=== PATIENT | male | born 1950 | race Caucasian/White ===

== ENCOUNTER 2018-02-27 06:44 | Emergency (ER) | payer MEDICARE, SELFPAY ==
[2018-02-27 06:44] VITALS: BP 149/100; PULSE 82; RESP 16; TEMP 37.1; O2SAT 96; BMI 36.6
--- NOTE | 2018-02-27 07:12 | CT_ITS ---
STUDY: CT ABDOMEN AND PELVIS WITHOUT CONTRAST REASON FOR EXAM: Male, 67 years old. Periumbilical pain. History of kidney stones. RADIATION DOSAGE (If Supplied By Facility): CTDIvol = ( 25.85 ) mGy, DLP = ( 1356.01 ) mGycm TECHNIQUE: Transaxial images were obtained from the dome of the diaphragm to the symphysis pubis without oral contrast, and without intravenous contrast. Sagittal and coronal images were reconstructed. Individualized dose optimization techniques were used for this CT. COMPARISON: Comparison is made with prior study dated July 04, 2016. FINDINGS: Mild degree of increased markings of the lung bases suggestive of scarring and/or atelectasis. Coronary artery calcification. Normal liver. There are surgical clips in the gallbladder fossa consistent with a prior cholecystectomy. Normal spleen. Normal pancreas. Normal bilateral adrenal glands. There are several tiny nonobstructive right intrarenal calculi. The largest measures 4 mm and lies in the inferior pole. Stable 1 cm cyst in the posterior midportion of the right kidney. Mild degree of perinephric stranding. Mild degree of right hydronephrosis and right hydroureter due to a 4.8 mm calculus in the proximal portion of the right ureter just distal to the right ureteropelvic junction. There is a mild degree of right ovarian ureteric stranding. Normal left kidney. There is a small hiatal hernia. Normal small intestine. Normal colon. The appendix is visualized and appears normal. There is diffuse atherosclerotic calcification of the abdominal aorta and its major visceral branches, without a demonstrated aneurysm. Normal inferior vena cava. Normal retroperitoneum. Normal urinary bladder. There is enlargement of the prostate gland. The prostate measures 5.1 cm x 5.1 cm. There is a small umbilical hernia containing fat. Small bilateral inguinal hernias containing fat. Small bilateral benign-appearing inguinal lymph nodes. There are mild degenerative changes of the visualized lumbar spine. CT/Abdomen/Pelvis without Cont IMPRESSION: 4.8 mm calculus in the proximal portion of the right ureter causing right hydronephrosis with perinephric stranding. Nonobstructive right intrarenal calculi. Electronically Signed: Torsten Decker MD at 8:23 EDT Tel [phone], Service support ,
--- NOTE | 2018-02-27 07:26 | ED.VISSUMM ---
- ER Visit Summary Date of Service: 02/27/18 Chief Complaint: Abdominal pain History of Present Illness: The patient is a 67 M reports midabdominal pain for the past several days. He forced decreased appetite. His last bowel movement was 4 days ago. He normally goes twice a day. states he had a fever and some chills over the weekend. Patient feels like his abdomen is distended and feels the shape of his abdominal hernia around his umbilicus has changed in shape. He denies any prior abdominal surgeries. He also reports a history of kidney stones and states he has been passing some small stones over the last several days. Physical Examination: Vital signs are gross unremarkable. Patient's lying in bed no acute distress. Head neck examination is unremarkable. Heart is regular rate and rhythm. Lung sounds are clear. Abdomen is soft with active bowel sounds throughout. There is no guarding or rebound. He has mild tenderness in the periumbilical area. There is a soft hernia just inferior to the umbilicus. There is a slightly tense hernia just above the umbilicus. Test Results: CBC is significant only for platelet count of 130,000. This is unchanged compared to prior labs. Chemistry studies reveal BUN of 31 and a creatinine of 2.02. This is compared to a creatinine 1.52 in June 2016. Lactate is unremarkable. CT flank reveals a 4.8 mm calculus in the proximal portion of the right ureter causing hydronephrosis and stranding. There is no umbilical hernia containing fat only. Emergency Department Course and Treatment: Patient was given morphine, Zofran, and IV fluids. On repeat evaluation he does feel improved. I spoke with Dr. Mccullough, whom the patient has seen in the past. Patient is to call the office to be seen this week. Treatment Plan: [] Disposition: Discharge Impression: Right ureteral calculus This note was generated with [employer] dictation software. It may contain incorrect words, spelling, and punctuation that were not noted in review of the chart prior to signing ED Disposition - Plan for ED Patient: Chief Complaint: Abd Pain Referrals: Juan Carlos Dee MD [Primary Care Provider] -
[2018-02-27] MEDS: Morphine 4 MG/ML Syringe IV (07:31)
[2018-02-27] MEDS: 0.9% Normal Saline 1,000 ML 150 ML IV (07:31)
[2018-02-27] MEDS: Ondansetron 4 MG/2 ML Vial IV (07:32)
[2018-02-27 07:46] LABS: Absolute Lymphocyte Count 1.15 X10^3/ul (0.83-4.51); Absolute Neutrophil Count 8.1 X10^3/uL (2.0-7.7); Basophil# 0.02 X10^3/uL; Basophil% 0.2 % (0-1); Eosinophil# 0.04 X10^3/uL; Eosinophils% 0.4 % (0-5); Hematocrit 42.8 % (40-54); Hemoglobin 14.9 g/dl (13.0-16.5); Lymphocyte # 1.15 X10^3/ul (4.0); Lymphocyte % 11.2 % (19-41); Mean Corp Hgb Conc 34.8 g/gl (32-36); Mean Corpuscular Hgb 30.9 pg (27.0-32.0); Mean Corpuscular Volume 88.8 fL (80-94); Mean Platelet Vol. 9.9 fl (6.2-12.0); Monocyte% 9.7 % (0-10); Neutrophil # 8.08 X10^3/uL (2.7-7.7); Neutrophil % 78.3 % (47-70); Platelet Count 130 K/mm3 (150-450); RBC Distribution Width CV 13.1 % (11.6-14.6); Red Blood Count 4.82 M/mm3 (4.6-6.2); White Blood Count 10.3 K/mm3 (4.4-11.0)
[2018-02-27 07:47] LABS: POSITIVE COUNT NO; POSITIVE DIFFERENTIAL NO; POSITIVE MORPHOLOGY NO
[2018-02-27 07:59] LABS: Anion Gap 11 (5-15); BUN 31 mg/dL (7-18); BUN/Creat Ratio 15.3 RATIO (10-20); Calcium,Total 8.8 mg/dL (8.5-10.1); Chloride 105 mmol/L (98-107); Creatinine, Serum 2.02 mg/dL (0.70-1.30); EST Glomerular Filtration Rate 35 mL/min (>60); Est Glom Filt Rate - Afr Amer 43 mL/min (>60); Estimated Creatinine Clearance 32.02 ml/min; Glucose 144 mg/dL (74-106); Potassium 3.6 mmol/L (3.5-5.1); Sodium Level 139 mmol/L (136-145)
[2018-02-27 08:10] LABS: Lactic Acid 1.2 mmol/L (0.4-2.0)
--- NOTE | 2018-02-27 08:43 | ED.DEP ---
ED Disposition - Plan for ED Patient: Disposition: Home or Assisted Living Chief Complaint: Abd Pain Instructions: ED Stone Renal W Colic, ED Constipation Prescriptions: Oxycodone HCl/Acetaminophen [Percocet 5/325] 1 tablet PO Q6H PRN PRN 4 Days #20 tablet PRN Reason: Pain Ondansetron [Zofran Odt] 4 mg PO Q8H PRN PRN #10 tab PRN Reason: Nausea Referrals: Edgardo Mccullough MD [STAFF PHYSICIAN] - 2 Days
== END 2018-02-27 09:07 | disposition home or self-care (01) ==
PROVIDERS: Emergency Provider Emergency Medicine; Family Provider Internal Medicine; PCP Internal Medicine
DX: N13.2 Hydronephrosis with renal and ureteral calculous obstruction (principal); K59.00 Constipation, unspecified; K42.9 Umbilical hernia without obstruction or gangrene; I25.10 Atherosclerotic heart disease of native coronary artery without angina pectoris; I25.2 Old myocardial infarction; E11.9 Type 2 diabetes mellitus without complications; I10 Essential (primary) hypertension; E78.00 Pure hypercholesterolemia, unspecified; G47.33 Obstructive sleep apnea (adult) (pediatric); Z87.442 Personal history of urinary calculi; Z79.82 Long term (current) use of aspirin; Z79.02 Long term (current) use of antithrombotics/antiplatelets; Z79.899 Other long term (current) drug therapy
CPT/HCPCS: 74176; 80048; 83605; 85025; 96361; 96374; 96375; 99283; J7030; A4216; J2405

== ENCOUNTER 2018-03-03 12:39 | Day surgery (SDC) | payer MEDICARE, SELFPAY ==
--- NOTE | 2018-03-03 12:59 | RAD_ITS ---
STUDY: X-RAY - ABDOMEN/PELVIS REASON FOR EXAM: Male, 67 years old. Right kidney stones. TECHNIQUE: Two AP supine views of the abdomen and pelvis. COMPARISON: Comparison is made with prior examination dated November 09, 2018. FINDINGS: Normal visualized lung bases. There is an unremarkable bowel gas pattern. The patient is status post cholecystectomy. 2 adjacent calculi are seen overlying the mid lower pole of the right kidney. The stones measure 3.5 mm each. There are calcified phleboliths in the pelvis. There are diffuse degenerative changes of the visualized lumbar spine. RAD/Abdomen Single View IMPRESSION: 2 small calculi seen in the lower pole calyx of the right kidney. Electronically Signed: Torsten Decker MD at 13:58 EDT Tel [phone], Service support ,
[2018-03-03 13:46] VITALS: BP 119/92; PULSE 59; RESP 16; TEMP 36.3; O2SAT 100; BMI 36.1
[2018-03-03] MEDS: Cefazolin 2 GM in 0.9% Normal Saline 100 ML IV (15:19)
--- NOTE | 2018-03-03 15:38 | PCM.DC.URO ---
Discharge Diet: Light diet - advance as tolerated Discharge Activity: Return to Normal Activity Call your doctor if you observe: Fever of 101 or Higher, Uncontrolled pain Instructions: Shock Wave Lithotripsy Allergies/Adverse Reactions: Allergies clams Allergy (Verified 03/02/18 08:09) Rash Medications to take at Discharge Aspirin 325 mg PO DAILY@0800 07/04/16 Cholecalciferol (Vitamin D3) [Vitamin D3] 2,000 unit PO DAILY 07/04/16 Clopidogrel Bisulfate [Plavix] 75 mg PO DAILY 07/04/16 Cyanocobalamin [Vitamin B12] 1,000 mcg PO DAILY@0807/04/16 Furosemide [Lasix] 20 mg PO DAILY 07/04/16 Metoprolol Tartrate [Lopressor (Beta Mart)] 50 mg PO BID 07/04/16 Multivitamin [Daily Multiple Vitamin] 1 each PO DAILY 07/04/16 Psyllium Husk [Fiber] 3 cap PO BID 07/04/16 Atorvastatin Calcium [Lipitor] 40 mg PO QHS 02/27/18 Oxycodone HCl/Acetaminophen [Percocet 5/325] 1 tablet PO Q6H PRN PRN 4 Days #20 tablet 02/27/18 Lisinopril [Zestril] 40 mg PO QHS 03/02/18 Ondansetron HCl [Zofran] 4 mg PO Q8H PRN PRN 03/02/18 Hydrocodone/Acetaminophen [[place] 5-325 Tablet] 1 ea PO Q4H PRN PRN 5 Days #14 tab 03/03/18 The following prescriptions were given: Hydrocodone/Acetaminophen [[place] 5-325 Tablet] 1 ea PO Q4H PRN PRN 5 Days #14 tab PRN Reason: Pain Primary Care Physician: Juan Carlos Dee MD [Primary Care Provider] - Please Follow Up With: Edgardo Mccullough MD - call if need to change appt. When: April 13 at 9:30 am with an xray
--- NOTE | 2018-03-03 15:41 | DCINST_ITS ---
Discharge Diet: Light diet - advance as tolerated Discharge Activity: Return to Normal Activity Call your doctor if you observe: Fever of 101 or Higher, Uncontrolled pain Instructions: Shock Wave Lithotripsy Allergies/Adverse Reactions: Allergies clams Allergy (Verified 03/02/18 08:09) Rash Medications to take at Discharge Aspirin 325 mg PO DAILY@0800 07/04/16 Cholecalciferol (Vitamin D3) [Vitamin D3] 2,000 unit PO DAILY 07/04/16 Clopidogrel Bisulfate [Plavix] 75 mg PO DAILY 07/04/16 Cyanocobalamin [Vitamin B12] 1,000 mcg PO DAILY@0807/04/16 Furosemide [Lasix] 20 mg PO DAILY 07/04/16 Metoprolol Tartrate [Lopressor (Beta Mart)] 50 mg PO BID 07/04/16 Multivitamin [Daily Multiple Vitamin] 1 each PO DAILY 07/04/16 Psyllium Husk [Fiber] 3 cap PO BID 07/04/16 Atorvastatin Calcium [Lipitor] 40 mg PO QHS 02/27/18 Oxycodone HCl/Acetaminophen [Percocet 5/325] 1 tablet PO Q6H PRN PRN 4 Days #20 tablet 02/27/18 Lisinopril [Zestril] 40 mg PO QHS 03/02/18 Ondansetron HCl [Zofran] 4 mg PO Q8H PRN PRN 03/02/18 Hydrocodone/Acetaminophen [[place] 5-325 Tablet] 1 ea PO Q4H PRN PRN 5 Days #14 tab 03/03/18 The following prescriptions were given: Hydrocodone/Acetaminophen [[place] 5-325 Tablet] 1 ea PO Q4H PRN PRN 5 Days #14 tab PRN Reason: Pain Primary Care Physician: Juan Carlos Dee MD [Primary Care Provider] - Please Follow Up With: Edgardo Mccullough MD - call if need to change appt. When: April 13 at 9:30 am with an xray
--- NOTE | 2018-03-03 16:00 | PCM.OPRPT ---
Report of Operation Date of Procedure: 03/03/18 Pre-Operative Diagnosis: Right kidney stones and right flank pain Post-Operative Diagnosis: Same Surgery/Procedure Performed:: Right extracorporeal shockwave lithotripsy Description of Surgical Findings:: 67-year-old male presented to the emergency room with severe pain in the right side of his proximal stone causing obstruction and hydronephrosis he had severe pain the pain and then went away with some in the office with an x-ray and reviewed the KUB and CAT scan and talked about the options of treatment including laser lithotripsy and shockwave lithotripsy after reviewing with this the patient he wanted to proceed with shockwave lithotripsy he understands he probably will not need a stent given the minimal stone burden. We also discussed the possibility stone with failed to break and he may need a second procedure. 67-year-old male taken back to the operating room after smooth induction of general anesthesia under fluoroscopy was able to identify stones in the right kidney in the lower pole area 2 stone fragments are seen a total of 2500 shockwaves were delivered to the stones stones actually broke up fairly rapidly and within the first thousand shockwaves had broken up really well and then we increased the speed lower the rate and intensity and finished of the treatment 2500 shockwaves at the end there was no other visible stones left a treat appear to be a successful fragmentation no stones were seen along the course of the entire ureter on the right side. Patient's anesthetic was reversed we will see him back in about 6 weeks with a KUB. Type of Anesthesia:: General - Admit VTE Documentation VTE Present on Admission: No VTE Mechan Device Prophylaxis: SCD's VTE Pharm Prophylaxis ordered?: No Reason prophylaxis not ordered:: Treatment Not Indicated
[2018-03-03 16:07] VITALS: BP 119/92; BP 121/76; PULSE 83; RESP 16; TEMP 36.3; O2SAT 97
[2018-03-03 16:15] VITALS: BP 119/92; BP 135/83; PULSE 64; RESP 16; O2SAT 97
[2018-03-03 16:30] VITALS: BP 119/92; BP 145/79; PULSE 64; RESP 16; TEMP 36.1; O2SAT 95
[2018-03-03 17:03] VITALS: BP 119/92
== END 2018-03-03 17:04 | disposition home or self-care (01) ==
LOC: SDC 12:40 → AC 12:41
PROVIDERS: Family Provider Internal Medicine; PCP Internal Medicine; Visit Provider Urology
PROC: 0TJ98ZZ Inspection of Ureter, Via Natural or Artificial Opening Endoscopic (ICD-10-PCS; CPT 52352; principal; 2018-03-03 14:30)
DX: N13.2 Hydronephrosis with renal and ureteral calculous obstruction (principal); E11.9 Type 2 diabetes mellitus without complications; E78.00 Pure hypercholesterolemia, unspecified; Z79.02 Long term (current) use of antithrombotics/antiplatelets; Z79.82 Long term (current) use of aspirin; Z79.899 Other long term (current) drug therapy; I10 Essential (primary) hypertension; I25.2 Old myocardial infarction; I25.10 Atherosclerotic heart disease of native coronary artery without angina pectoris; Z95.5 Presence of coronary angioplasty implant and graft; G47.30 Sleep apnea, unspecified; M19.90 Unspecified osteoarthritis, unspecified site
CPT/HCPCS: 50590; 74018; J7120

== ENCOUNTER → 2018-04-18 12:50 | Outpatient (CLI) | payer MEDICARE, SELFPAY ==
--- NOTE | 2018-04-18 12:53 | RAD_ITS ---
STUDY: X-RAY - ABDOMEN/PELVIS REASON FOR EXAM: Male, 67 years old. Recurrent right lower quadrant pain TECHNIQUE: Two AP supine views of the abdomen and pelvis. COMPARISON: February 27, 2018 abdomen series FINDINGS: Lung bases are out of the [id number]. There is a radiopaque density overlying the right psoas muscle measuring 4.4 mm. This may represent a persistent stone in the right ureter. There are surgical clips in the right upper quadrant status post cholecystectomy. There is an unremarkable bowel gas pattern. There is no demonstrated free abdominal air. The visualized liver, spleen and kidneys are grossly normal in size and morphology. There are calcified phleboliths in the pelvis. Normal visualized osseous structures. RAD/Abdomen Single View IMPRESSION: 4.4 mm density overlying the right psoas muscle which may represent a persistent stone in the right ureter. There is a stone in the right ureter February 27, 2018 CT scan abdomen and pelvis. Recommend follow-up CT scan of the abdomen and pelvis without contrast when appropriate. Electronically Signed: Jesusita Desai MD at 17:09 EDT Tel , Service support ,
== END ==
PROVIDERS: Family Provider Internal Medicine; PCP Internal Medicine; Visit Provider Urology
DX: N20.0 Calculus of kidney (principal); R10.9 Unspecified abdominal pain
CPT/HCPCS: 74018

== ENCOUNTER → 2018-05-08 10:23 | Outpatient (CLI) | payer MEDICARE, SELFPAY ==
--- NOTE | 2018-05-08 10:26 | US_ITS ---
STUDY: RENAL ULTRASOUND - COMPLETE REASON FOR EXAM: Male, 67 years old. Follow-up CT. Lithotripsy February 2018. History of kidney stones. TECHNIQUE: Ultrasound evaluation of the kidneys was performed with real-time and static pinzon-scale imaging. COMPARISON: CT abdomen and pelvis 02/27/2018. FINDINGS: RIGHT KIDNEY: 12.7 x 5.4 x 6.0 cm. Cortical thickness 1.8 cm. Normal cortical echotexture. Right renal mid polar cyst measures 11 mm, simple cystic features. Not affecting calyceal calculi are present mid polar calyces measuring 4 mm and 3 mm. There is no hydronephrosis or mass. LEFT KIDNEY: 13.1 x 5.3 x 5.5 cm. Cortical thickness 1.8 cm. Normal cortical echotexture. There is no mass, cyst, calculus or hydronephrosis. BLADDER: Distended volume 249 mL. Empty volume 45 mL. Moderate post void residual. The bladder appears normal in caliber, contour and wall thickness. Bilateral ureteral jets are visible. The spleen is enlarged with a greatest craniocaudal dimension of approximately 13.8 cm. On recent prior CT scan the grayscale, dimension of the spleen was 15.25 cm. US/Kidney and Bladder IMPRESSION: There is no hydronephrosis. There are small retained nonobstructing calyceal calculi of the right kidney. Splenomegaly. Moderate postvoid residual of the urinary bladder. Electronically Signed: Zack Candelario, at 15:47 EDT Tel , Service support ,
== END ==
PROVIDERS: Family Provider Internal Medicine; PCP Internal Medicine; Visit Provider Urology
DX: Z87.442 Personal history of urinary calculi (principal)
CPT/HCPCS: 76770

== ENCOUNTER → 2019-04-09 | Outpatient (CLI) | payer MEDICARE, SELFPAY ==
--- NOTE | 2019-04-09 07:59 | RAD_ITS ---
STUDY: X-RAY - ABDOMEN/PELVIS REASON FOR EXAM: Male, 68 years old. Kidney stones TECHNIQUE: Single AP view of the abdomen / pelvis. COMPARISON: 04/18/2018. FINDINGS: Normal visualized lung bases. There is an unremarkable bowel gas pattern. There is no demonstrated free abdominal air. No definite renal or ureteral stones although small stones could be hidden by overlying bowel contents. The visualized liver, spleen and kidneys are grossly normal in size and morphology. There are calcified phleboliths in the pelvis. Normal visualized osseous structures. RAD/Abdomen Single View IMPRESSION: Normal x-ray examination of the abdomen and pelvis. No definite renal or ureteral stones. Electronically Signed: Zackery Rose MD at 17:42 EDT , Service support ,
[2019-04-09 10:32] LABS: PSA,Total- Diagnostic 4.07 ng/mL (0.0-4.0)
== END | disposition home or self-care (01) ==
PROVIDERS: Family Provider Internal Medicine; PCP Internal Medicine; Referring Provider Urology; Visit Provider Urology
DX: N20.0 Calculus of kidney (principal); N39.0 Urinary tract infection, site not specified; R97.20 Elevated prostate specific antigen [PSA]
CPT/HCPCS: 36415; 74018; 84153; 87086; 87088

== ENCOUNTER → 2019-11-05 13:49 | Outpatient (CLI) | payer MEDICARE, SELFPAY ==
[2019-10-23 13:33] VITALS: BMI 37.3
--- NOTE | 2019-11-05 13:54 | ECHOCS_ITS ---
Reason For Study: CAD/ASHD, HTN Procedure This was a 2D Doppler, Color Flow transthoracic echocardiogram. The study was technically difficult. Due to body habitus. Contrast injection was performed. Exam performed in department. Left Ventricle Normal size and thickness. The estimated ejection fraction is 55-60 %. Stage 1 diastolic dysfunction. Anterior [place] : Mildly hypokinetic. Mid-anteroseptal : Mildly hypokinetic. Right Ventricle Normal size and thickness. Normal systolic function. Atria Normal left atrium. Normal right atrium. Normal atrial septum. Mitral Valve The mitral valve is structurally normal. No prolapse or stenosis seen. Tricuspid Valve Normal tricuspid valve. Unable to estimate RV systolic pressure due to insufficient tricuspid regurgitant envelope. Aortic Valve Trisinus/trileaflet aortic valve. Mild diffuse aortic valve thickening. Trivial aortic valve insufficiency. Pulmonic Valve Normal pulmonic valve. Great Vessels Mildly dilated aortic root. Normal arch. Normal inferior vena cava. Inferior vena cava collapse with sniff. Pericardium/Pleural No pericardial effusion. Medication 22 gauge I.V. with prn adaptor inserted into right arm. Diluted definity 3.0ml given slow IV push to enhance endocardial definition. MMode/2D Measurements & Calculations LVIDd: 4.2 cm FS: 26.7 % Ao root diam: 4.0 cm LVIDs: 3.1 cm RVDd: 3.2 cm LAV(MOD-bp): 56.2 ml LA A4 area: 17.2 cm2 LA dimension(2D): 4.0 cm LAV(MOD-bp) Indexed: 26.4 ml/m2 LAV(MOD-sp2): 49.6 ml LAV(MOD-sp4): 51.9 ml Time Measurements MV dec time: 0.23 sec Doppler Measurements & Calculations MV E max pablo: 71.5 cm/sec Lat Peak E' Pablo: 6.6 cm/sec Med Peak E' Pablo: 6.4 cm/sec MV A max pablo: 89.0 cm/sec E/E' lat: 10.8 E/E' med: 11.2 MV E/A: 0.80 Ao V2 max: 155.2 cm/sec LV V1 max: 95.6 cm/sec PA V2 max: 83.6 cm/sec Ao max P.6 mmHg LV V1 max P.7 mmHg Interpretation Summary The estimated ejection fraction is 55-60 %. Stage 1 diastolic dysfunction. Anterior [place] : Mildly hypokinetic Mid-anteroseptal : Mildly hypokinetic Unable to estimate RV systolic pressure due to insufficient tricuspid regurgitant envelope. Trivial aortic valve insufficiency. Mildly dilated aortic root of 4.0 cm. The study was technically difficult. Contrast injection was performed. There is no comparison study available. Ordering Physician: Theodore Mcmahon Referring Physician: Juan Carlos Dee Performed By: Laurence Jaimes RDCS, RVT
== END ==
PROVIDERS: Family Provider Internal Medicine; PCP Internal Medicine; Referring Provider Internal Medicine Cardiovascular Disease; Visit Provider Internal Medicine Cardiovascular Disease
DX: I25.10 Atherosclerotic heart disease of native coronary artery without angina pectoris (principal); I10 Essential (primary) hypertension; E78.5 Hyperlipidemia, unspecified; Z95.5 Presence of coronary angioplasty implant and graft
CPT/HCPCS: 93306; J7040; Q9957; A4216; C8929

== ENCOUNTER → 2019-11-06 10:28 | Outpatient (CLI) | payer MEDICARE, SELFPAY ==
[2019-10-23 13:33] VITALS: BMI 37.3
--- NOTE | 2019-11-06 10:30 | STEWCON_ITS ---
Reason For Study: CAD/ASHD Stress Results Protocol: Dobutamine Stress Echo With Definity Maximum Predicted HR: 151 bpm Target HR: 128 bpm % Maximum Predicted HR: 84 % DurationHeart Rate Stage (mm:ss) (bpm) BP Dose Comment baseline 63 145/98 9 ml total definity given stage 1 4:55 78 165/27588.00 stage 2 3:00 100 152/8220.00 stage 3 3:00 123 158/8430.00 stage 4 2:49 127 / 40.00 recovery 96 132/86 Stress Duration: 13:44 mm:ss Maximum Stress HR: 127 bpm Baseline Echocardiogram Findings The estimated ejection fraction is 65 %. Stress Echo Wall motion Data Resting WM Intermediate WM Stress WM Resting Wall Motion Wall Motion Stress No regional wall motion No regional wall motion abnormalities noted. abnormalities noted. EKG Data The baseline ECG displays normal sinus rhythm. The patient was titrated from 10 mcg to a maximum of 40 mcg of dobutamine during the stress. The maximum heart rate attained was 133 beats per minute. This was 88% of maximum predicted heart rate. During dobutamine infusion, there were no ST or T wave changes noted to suggest ischemia. No clinical angina was noted. Interpretation Summary The estimated ejection fraction is 65 %. Abnorml adequate, dobutamine echocardiogram. Negative for ischemia by EKG and but positive for ischemia by echocardiographic criteria. No anginal symptoms noted. Patient appeared to develop mild anteroseptal hypokinesis at peak infusion seen in 2 views. Rare PVCs noted during infusion which is a nonspecific finding, but cannot exclude ischemia as well.. Appropriate blood pressure response to dobutamine. Test terminated due to the attainment target heart rate. Final LVEF is 65%. Poor echo windows requiring Definity agent make interpretation somewhat problematic.Patient tolerated the procedure well. No complications. The study was technically difficult. Contrast injection was performed. Ordering Physician: Theodore Mcmahon Referring Physician: Theodore Mcmahon Performed By: Ronnie Layne, [facility]
== END ==
PROVIDERS: Family Provider Internal Medicine; PCP Internal Medicine; Referring Provider Internal Medicine Cardiovascular Disease; Visit Provider Internal Medicine Cardiovascular Disease
DX: I25.10 Atherosclerotic heart disease of native coronary artery without angina pectoris (principal); I10 Essential (primary) hypertension; E78.5 Hyperlipidemia, unspecified; Z95.5 Presence of coronary angioplasty implant and graft
CPT/HCPCS: 93017; 93350; Q9957; A4216; C8928

== ENCOUNTER 2019-11-16 08:38 | Day surgery (SDC) | payer MEDICARE, SELFPAY ==
--- NOTE | 2019-10-23 02:04 | HP_ITS ---
HPI HPI History of Present Illness Surgical H&P: Yes Details: Mr. Fisher is a very pleasant 69-year-old gentleman with a history of hypertension, lifelong non-smoker, hyperlipidemia, obstructive sleep apnea on CPAP, coronary artery disease status post emergent heparin and Integrilin assisted angioplasty and stenting on to his LAD 07/20/2004 at [facility] in [facility], at which time he received a 2.75 X12 Taxus express 2 stent emergently. At that time he was found to have left-sided dominant, nonobstructive coronary disease and an EF of 47%. And repeat heart catheterization around 2006. Patient is a former Dr. Merida patient, and was referred to our office for ongoing cardiac care. His most recent stress test took place at the [facility] on 07/08/2016 which was negative for inducible ischemia by EKG criteria, no imaging was performed. From a cardiac standpoint the patient denies any chest pain, angina, but does complain of worsening shortness of breath and dyspnea on exertion over the last 8 to 12 months. This is most notable when he is walking up and down stairs repeatedly. He has had no presyncope or syncopal episodes. In our office today's blood pressure is 150/80, pulse is 64 and regular. Physical exam demonstrates no carotid bruits, 2+ upstroke bilaterally, clear lungs bilaterally, regular rate and rhythm, normal S2, a faint 2/3 holosystolic murmur best heard at the lower left sternal border, no S3 or S4. EKG dated 08/16/2018 shows normal sinus rhythm, good R wave progression across the precordium, nonspecific ST and T wave flattening. Lipids dated 10/09/2019 show an HDL of 38 and LDL of 36. Intake Vital Signs 10/23/19 Height 5 ft 6 in 10/23/19 Weight: 231 lb 10/23/19 Body Mass Index (BMI) 37.3 10/23/19 Blood Pressure 150/80 H 10/23/19 Blood Pressure Location Lt brachial 10/23/19 Blood Pressure Position Sitting 10/23/19 Respiratory Rate 20 H 10/23/19 Pulse Rate 64 10/23/19 Pulse Source Auscultation Intake Visit Reasons: CAD, HTN (PREV RIKKI PT) Lode [employer]er Required: No Accompanied by: Is patient in pain?: No Allergies clams Allergy (Verified 10/23/19 13:42) Rash Medications Aspirin 325 mg PO DAILY@0800 07/04/16 [History Confirmed 10/23/19] Cyanocobalamin [Vitamin B12] 1,000 mcg PO DAILY@0800 07/04/16 [History Confirmed 10/23/19] Furosemide [Lasix] 20 mg PO DAILY 07/04/16 [History Confirmed 10/23/19] Metoprolol Tartrate [Lopressor (Beta Mart)] 50 mg PO BID 07/04/16 [History Confirmed 10/23/19] Multivitamin [Daily Multiple Vitamin] 1 ea PO DAILY 07/04/16 [History Confirmed 10/23/19] Psyllium Husk [Fiber] 3 cap PO BID 07/04/16 [History Confirmed 10/23/19] Atorvastatin Calcium [Lipitor] 40 mg PO QHS 02/27/18 [History Confirmed 10/23/19] Lisinopril [Zestril] 40 mg PO QHS 03/02/18 [History Confirmed 10/23/19] cetirizine 10 mg tablet 10 mg PO DAILY tab 10/22/19 [History Confirmed 10/23/19] cholecalciferol (vitamin D3) 2,000 unit tablet 2,000 unit PO DAILY 10/22/19 [History Confirmed 10/23/19] [facility] Medical History Essential hypertension (Chronic) Hyperlipidemia (Chronic) BEAU on CPAP (Chronic) Atherosclerosis of coronary artery of [place] heart without angina pectoris (Chronic) Colon polyps (Chronic) Diverticulosis (Chronic) Thrombocytopenia (Chronic) Type 2 diabetes mellitus without complication (Chronic) History of MO (myocardial infarction) (Resolved) Surgical History History of left heart catheterization (Chronic ~2006) History of coronary artery stent placement (Chronic ~07/20/04) History of cholecystectomy (Resolved) History of lithotripsy (Resolved) Family History Mother Colon cancer Social History (Updated 10/23/19 @ 14:05 by Theodore Mcmahon MD) Smoking Status: Never smoker alcohol intake: never substance use type: does not use ROS Const Const: Positive for other (Former pt of Dr. Dave Paige. Feels well, establishing care.); negative for fatigue, weakness, body ache, fever(s), headache(s), chills, frequent falls, night sweats, daytime sleepiness, difficulty sleeping, excessive sweating, weight gain, weight loss, increased appetite, poor appetite or anorexia Eyes Eyes: Negative for blind spots, loss of peripheral vision, transient loss of vision, blurry vision, change in vision, double vision, floaters, tunnel vision or other ENT ENT: Negative for headache(s), dizziness, hearing loss, tinnitus, Nosebleed/epistaxis, balance problems, post nasal drip, lip swelling, tongue swelling, bleeding gums, hoarseness, neck pain, dry mouth or other Cardio Chest Pain: No Palpitations: No Edema: None Muscle aches with walking: None Resp Respiratory: Negative for SOB with activity, SOB at rest, SOB orthopnea\SOB lying down, Cough, Coughing up blood/hemoptysis, chest congestion, pain on inspiration, snoring, stridor, wheezing, crackles, paroxysmal nocturnal dyspnea or other GI GI: Negative nausea, vomiting, heartburn, constipation, belching, bloating, cramping, vomiting blood/hematemesis, bright, red blood in stools, black,tarry stools, loose stools, Difficulty Swallowing or other : Negative for hematuria, frequent nighttime urination/ nocturia, erectile dysfunction or abnormal vaginal bleeding Musc Musc: Negative for muscle aches/ myalgia, muscle weakness, joint pain or balance problems Skin Skin: Negative redness, non-healing lesions, rash, unusual bruising, skin ulcer, wounds, jaundice or other Neuro Neuro: Negative for dizziness, lightheadedness, near syncope, syncope, orthostatic symptoms, frequent falls, headache(s), weakness, confusion, memory loss, restless legs, blurry vision, double vision, vertigo, seizures, lack of coordination or other Rob Hematologic/Lymphatic: Negative for easy bleeding, easy bruising, enlarged lymph nodes or other Endo Endo: Negative for fatigue, cold intolerance, heat intolerance, excessive sweating, flushing, increased thirst/drinking, increased hunger, hair loss, hair growth or other Psych Psych: Negative for anxiety, depression, thoughts of harming anyone, thoughts of harming yourself, visual hallucinations, panic attacks or audible hallucinations Allergy Allergy/Immunology: Negative for throat swelling, Negative for tongue swelling, Negative for hives, Negative for rash, Negative for lip swelling Cardiology Exam Const Appearance: cooperative, healthy appearing and no acute distress Nutritional Appearance: well nourished Orientation: alert, oriented x3 and oriented to person Head Head: normal to inspection, normocephalic and atraumatic Nose: external nose normal Face and Sinus: face symmetric Mouth: oral mucosae normal Eyes General: appearance normal, both eyes and all related structures Eyelids: eyelids normal Conjunctivae: conjunctivae normal Pupils: PERRL and normal by confrontation EOM: EOM intact bilaterally Neck Neck: normal visual inspection and full ROM Carotids: normal carotid upstroke Chest Chest inspection: normal inspection of the chest Auscultation: Bilateral: Clear to Auscultation Cardio Palpation: normal PMI Rate: regular rate Rhythm: regular rhythm Heart sounds: S1 normal and S2 normal GI GI: normal to inspection, no hepatosplenomegaly and bowel sounds present Neuro General: alert, awake, oriented x3, CN's II-XI intact bilaterally and moves all extremities Skin Skin: no rashes or lesions noted Extremities Pulses: Normal: Right Femoral Pulse, Left Femoral Pulse, Right Dorsalis Pedis Pulse, Left Dorsalis Pedis Pulse, Right Posterior Tibial Pulse, Left Posterior Tibial Pulse, Right Radial Pulse, Left Radial Pulse Lower Extremity Edema: None: Bilateral Psych Psychological: normal affect Assessment & Plan 1. Atherosclerosis of coronary artery of [place] heart without angina pectoris I25.10 2.75 x 12 mm Taxus Express II to pLAD 07/20/04 Plan 1. Coronary artery disease: No exertional anginal symptoms at this time however the patient has had progressively worsening dyspnea on exertion and shortness of breath over the last 8 to 12 months which may be an anginal equivalent in this borderline diabetic gentleman. Patient has known history of coronary disease, and previous intervention of his LAD. I recommend the patient undergo a repeat 2D echo with Doppler to document his LV function, and more importantly his pulmonary pressures given his obstructive sleep apnea. In addition I recommend that he undergo a dobutamine echocardiogram to assess for ischemia particularly of the anterior wall. If this is grossly abnormal, the patient may require diagnostic coronary angiogram. In the meantime we will continue baby aspirin, Lasix, lisinopril and metoprolol. Orders Orders: Echo Complete Today Stress Test Echo W/Contrast Today 2. Hyperlipidemia E78.5 Plan 2. Hyperlipidemia: His LDL and HDL cholesterol are at goal. Continue Lipitor. 3. Return office in 6 months. This note was generated using a voice recognition system and there may be incorrect words, spelling or punctuation that were not noted when reviewing the office note prior to saving. Orders Orders: Echo Complete Today Stress Test Echo W/Contrast Today 3. BEAU on CPAP G47.33; Z99.89 Plan Detail Other Orders Orders: Echo Complete Today I10, Z95.5 Stress Test Echo W/Contrast Today I10, Z95.5 Follow Up +6M (Lisandro) Coding Level of Care Code Off vis,new,level 4 Diagnoses Atherosclerosis of coronary artery of [place] heart without angina pectoris I25.10 Hyperlipidemia E78.5 BEAU on CPAP G47.33; Z99.89 Coding Level of Care Code Off vis,new,level 4 Diagnoses Atherosclerosis of coronary artery of [place] heart without angina pectoris I25.10 Hyperlipidemia E78.5 BEAU on CPAP G47.33; Z99.89 Supplemental Info Supplemental Information Diagnostics Electrocardiogram 07/04/16 10/23/19 [id number] <Electronically signed by Theodore Mcmahon MD> Date _ Theodore Mcmahon MD
[2019-10-23 13:33] VITALS: BMI 37.3
--- NOTE | 2019-11-07 15:20 | RAD_ITS ---
STUDY: X-RAY CHEST REASON FOR EXAM: Male, 69 years old. Preop for heart catheterization TECHNIQUE: PA and lateral views of the chest. COMPARISON: None. FINDINGS: Pleural parenchymal fibrotic changes in the right more than left lung base. No airspace elevation. There is no demonstrated pleural abnormality. Normal size heart. Normal mediastinum and tyron. Normal visualized pulmonary arteries. There is atherosclerotic calcification of the aortic arch with tortuosity. Degenerative changes of the thoracic spine with exaggerated thoracic kyphosis, mid thoracic spine chronic compression deformities and diffuse osteopenia. Normal visualized ribs, clavicles, and shoulders. There is no demonstrated abnormality of the visualized soft tissue structures of the upper abdomen. RAD/Chest PA and Lateral IMPRESSION: No acute cardiopulmonary process. Chronic changes, as above. Electronically Signed: Hu Mckeon MD (Brooks) at 20:29 EST , Service support ,
[2019-11-07 16:04] LABS: Hematocrit 44.7 % (40-54); Hemoglobin 15.1 g/dL (13.0-16.5); Mean Corp Hgb Conc 33.8 g/dL (32-36); Mean Corpuscular Hgb 30.4 pg (27.0-32.0); Mean Corpuscular Volume 89.9 fL (80-94); Mean Platelet Vol. 9.5 fl (6.2-12.0); Platelet Count 142 K/mm3 (150-450); RBC Distribution Width CV 13.1 % (11.6-14.6); RBC Distribution Width SD 42.8 fl (35.1-43.9); Red Blood Count 4.97 M/mm3 (4.6-6.2); White Blood Count 5.1 K/mm3 (4.4-11.0)
[2019-11-07 16:13] LABS: Prothrombin Time (Protime)PT. 13.1 SECONDS (11.7-14.9)
[2019-11-07 16:14] LABS: Partial Thromboplast Time 31.5 Seconds (24.1-36.2)
[2019-11-07 17:52] LABS: Anion Gap 6 (5-15); BUN 21 mg/dL (7-18); BUN/Creat Ratio 17.6 RATIO (10-20); Calcium,Total 8.8 mg/dL (8.5-10.1); Chloride 107 mmol/L (98-107); Creatinine, Serum 1.19 mg/dL (0.70-1.30); EST Glomerular Filtration Rate 64 mL/min (>60); Est Glom Filt Rate - Afr Amer 78 mL/min (>60); Glucose 141 mg/dL (74-106); Potassium 3.6 mmol/L (3.5-5.1); Sodium Level 142 mmol/L (136-145)
[2019-11-15 08:39] VITALS: BMI 37.3
--- NOTE | 2019-11-16 11:07 | CL.D_ITS ---
Patient Name: EVETTE DAVILA Study Date: 11/16/2019 Performing: Theodore Mcmahon MD Ht: 66.14 inches 168 cm : 1950 Wt: 231.49 lbs 105 kg Age: 69 Gender: male BSA: 2.13 PROCEDURE(S) PERFORMED [id number]/LV CLINICAL PROFILE AND INDICATIONS Indications: Stable Known CAD, Stable Known CAD, LV Dysfunction Heart Failure: NYHA Class: 1 Stress/Imaging Date: 11/06/2019Stress Echocardiogram: Positive Low Risk Angina Classification Anginal Classification w/in 2 Weeks: No symptoms CAD Presentations: No Sxs, no angina. Comorbidities/Risk Factors: Hypertension Dyslipidemia Prior HI Prior CHF Prior PCI CONCLUSIONS Segmented LV systolic dysfunction- Moderate Non obstructive coronary arteries RECOMMENDATIONS Management as per referring Bracer Manual sheath removal. Continue asa/plavix to protect against HI for large dominant LCX and small dimunitive LAD/RCA,. DESCRIPTION OF PROCEDURE The patient arrived to the procedure lab. The risks and benefits of the procedure as well as a full d escription of our services here and current unavailability of surgical backup were fully explained to the patient and/or their significant other prior to the catheterization. The Timeout was completed, verifying the correct patient and procedure. The patient's procedural site was prepped and draped in the usual fashion. Local anesthetic was given subcutaneously to right groin region with Lidocaine 2%. Using a modified Seldinger technique, arterial access was obtained via the right femoral artery, a 4 Fr sheath was inserted Left Coronary Artery selective angiography was performed in multiple views us ing a 4 Fr. JL5 catheter. Right Coronary Artery selective angiography was then performed in multiple views using a 4 Fr. 3DRC catheter. Left Ventriculography was performed in NEVES projection using a 4 Fr . Pigtail catheter. LV to AO pullback pressures were then recorded.The arterial sheath was pulled and manual compression applied until hemostasis is achieved.. The arterial sheath was pulled a nd manual compression applied until hemostasis is achieved. CORONARY ANGIOGRAPHY DOMINANCE: Left Dominant LEFT HEART ASSESSMENT Left Ventricular Ejection Fraction: by LV Gram 45 % Anterior Hypokinesis - Moderate Depressed Left Ventricular systolic function LVEDP: 18 mmHg Elevated Left Ventricular End Diastolic Pressure LEFT MAIN: Angiographically normal LEFT ANTERIOR DESCENDING ARTERY: PROX LAD: Previously placed stent is patent CIRCUMFLEX ARTERY: Angiographically normal RIGHT CORONARY ARTERY: Angiographically normal COMPLICATIONS No Complications PROCEDURE MEDICATIONS Versed 1 mg IV Oxygen: 2 L/min via nasal cannula SUMMARY OF HEMODYNAMIC DATA Time AIR REST ECG 08:58:23 AO 144/84 (109) SA 10:44:18 LV 149/-5, 17 10:54:29 LV 150/-4, 19 10:54:35 LVp 151/-12, 18 10:54:39 AOp 149/72 (100) 10:54:44 Signed By Theodore Mcmahon MD On 11/16/2019 11:06:51 AM Theodore Mcmahon MD
== END 2019-11-16 15:30 | disposition home or self-care (01) ==
LOC: CLSP 08:38
PROVIDERS: Family Provider Internal Medicine; PCP Internal Medicine; Referring Provider Internal Medicine Cardiovascular Disease; Visit Provider Internal Medicine Cardiovascular Disease
DX: I25.10 Atherosclerotic heart disease of native coronary artery without angina pectoris (principal); E78.5 Hyperlipidemia, unspecified; G47.33 Obstructive sleep apnea (adult) (pediatric); I25.2 Old myocardial infarction; I10 Essential (primary) hypertension; E11.9 Type 2 diabetes mellitus without complications; D69.6 Thrombocytopenia, unspecified; Z95.5 Presence of coronary angioplasty implant and graft; Z79.82 Long term (current) use of aspirin
CPT/HCPCS: 36415; 71046; 80048; 85027; 85610; 85730; 93458; 99152; J7040; Q9967; C1769

== ENCOUNTER 2020-02-28 01:25 | Emergency (ER) | payer MEDICARE, SELFPAY ==
[2019-11-15 08:39] VITALS: BMI 37.3
[2020-02-28 01:26] VITALS: BP 218/115; PULSE 60; RESP 18; TEMP 37.1; O2SAT 97; BMI 38.1
[2020-02-28] MEDS: Morphine 4 MG/ML Syringe IV (01:43)
[2020-02-28] MEDS: Ondansetron 4 MG/2 ML Vial IV (01:43)
--- NOTE | 2020-02-28 02:14 | ED.DCSUM_ITS ---
- ER Visit Summary Date of Service: 02/28/20 Chief Complaint: Abdominal pain History of Present Illness: The patient is a [address] Dee. He reports that he has a history of an umbilical hernia and that for the past 2 hours he has been unable to get this to reduce. He reports he has a sharp, cramping pain is begun gradually. Is 8 of 10 at worst and 7-10 currently. Is worsened by movement and relieved by laying down. He is had nausea without vomiting. No diarrhea. His last bowel was yesterday. No motor medication. No dysuria frequency. He is never had anything like this before. Physical Examination: Vitals: Stable. Afebrile. General: Well-nourished and well-developed. Head: Normocephalic atraumatic. Neck: Supple, no lymphadenopathy. No JVD. Nontender. Cardiovascular: Regular rate and rhythm. No murmurs. Respiratory: No respiratory distress. Clear to auscultation bilaterally. Abdominal: Soft, incarcerated umbilical hernia, nondistended, normal bowel sounds. No guarding, rebound, or peritoneal signs. Back: Nontender. Extremities: Nontender, no edema. Skin: Normal color, no rash. Neurologic: Alert and oriented ?3. Cranial nerves II through XII are intact. Normal strength and sensation. Psych: Normal affect. Emergency Department Course and Treatment: Patient was given a dose of morphine and Zofran IV. He had ice placed over this. It was then reduced and he tolerated this well. Has been observed over the course of an hour following this is been able to ambulate without the hernia recurring. Treatment Plan: Patient will be discharged instructions to follow-up with Dr. Lewis within 3 to 5 days for further evaluation and treatment of his umbilical hernia. We did discuss that if this becomes incarcerated again that he needs to return the emergency department. Return to the emergency department for any worsening symptoms. Disposition: To home in improved and stable condition. Impression: 1. Umbilical hernia. This note was generated with [employer] software. It may contain incorrect words, spelling, and punctuation that were not noted in review of the chart prior to signing ED Disposition - Plan for ED Patient: Instructions: ED Hernia Inguinal Prescriptions: Docusate Sodium [Colace] 100 mg PO DAILY #20 cap Prescription Printed Hydrocodone Bitart/Apap 5-325 [[place] 5MG-325MG] 1 tab PO Q4H PRN PRN 2 Days #10 tab PRN Reason: Pain Prescription Printed Ondansetron [Zofran Odt] 4 mg PO Q8H PRN PRN #10 tab PRN Reason: Nausea Prescription Printed Referrals: Radha Lewis MD [STAFF PHYSICIAN] - 3-5 Days
[2020-02-28 02:45] VITALS: BP 139/95; PULSE 63; RESP 16; O2SAT 93
== END 2020-02-28 02:58 | disposition home or self-care (01) ==
PROVIDERS: Emergency Provider Emergency Medicine; PCP Internal Medicine
DX: K42.9 Umbilical hernia without obstruction or gangrene (principal); R11.0 Nausea; I25.10 Atherosclerotic heart disease of native coronary artery without angina pectoris; I10 Essential (primary) hypertension; Z79.02 Long term (current) use of antithrombotics/antiplatelets; Z79.82 Long term (current) use of aspirin; Z79.899 Other long term (current) drug therapy; Z87.442 Personal history of urinary calculi
CPT/HCPCS: 96374; 96375; 99284; J2405

== ENCOUNTER 2022-02-17 13:48 | Outpatient (CLI) | payer MEDICARE, SELFPAY ==
--- NOTE | 2022-02-17 13:51 | CT_ITS ---
STUDY: CT ABDOMEN AND PELVIS WITHOUT CONTRAST REASON FOR EXAM: Male, 71 years old. HEMATURIA RADIATION DOSAGE (If Supplied By Facility): CTDIvol = ( 13.54 ) mGy, DLP = ( 930.55 ) mGycm TECHNIQUE: Transaxial images were obtained from the dome of the diaphragm to the symphysis pubis without oral contrast, and without intravenous contrast. Sagittal and coronal images were reconstructed. Individualized dose optimization techniques were used for this CT. COMPARISON: Comparison is made with prior study dated 02/27/2018. FINDINGS: Mild degree of increased markings at the lung bases suggestive of linear atelectasis and/or scarring. Coronary artery calcification. Normal liver. There are surgical clips in the gallbladder fossa consistent with a prior cholecystectomy. Normal spleen. Normal pancreas. Normal bilateral adrenal glands. Punctate calculus in the upper pole calyx of the right kidney. There is a 1.2 cm cyst in the mid posterior aspect of the right kidney. There is a 7 mm calculus in the left renal pelvis at the level of the ureteral pelvic junction. Normal visualized stomach. Normal small intestine. There are scattered colonic diverticula consistent with diverticulosis. The appendix is visualized and appears normal. There is diffuse atherosclerotic calcification of the abdominal aorta and its major visceral branches, without a demonstrated aneurysm. Normal inferior vena cava. Normal retroperitoneum. Normal urinary bladder. There is enlargement of the prostate gland. It measures 5.6 cm x 5.3 cm. This causes indentation at the bladder base. There is prominence of the seminal vesicles. There is a small umbilical hernia containing fat. There are degenerative changes of the visualized lumbar spine. CT/Abdomen/Pelvis without Cont IMPRESSION: 7 mm calculus in the left renal pelvis at the levels of the ureteropelvic junction causing mild hydronephrosis. Small cyst in the right kidney as well as a punctate calculus in the upper pole collection of the right kidney. Prostatic enlargement with indentation at the bladder base. Electronically Signed: Torsten Decker MD at 15:34 EDT ,
== END 2022-02-17 23:59 | disposition home or self-care (01) ==
PROVIDERS: PCP Internal Medicine; Visit Provider Urology
DX: R10.84 Generalized abdominal pain (principal); R31.9 Hematuria, unspecified
CPT/HCPCS: 74176

== ENCOUNTER 2022-02-26 10:47 | Day surgery (SDC) | payer MEDICARE, SELFPAY ==
[2022-02-26 11:31] VITALS: BP 132/73; PULSE 55; RESP 16; TEMP 36.9; O2SAT 97; BMI 36.6
[2022-02-26] MEDS: Lactated Ringers 1,000 ML 15 ML IV ×2 (11:45→13:45)
[2022-02-26] MEDS: Cefazolin 2 GM in 0.9% Normal Saline 100 ML IV (13:07)
[2022-02-26] MEDS: Ketorolac 15 MG/ML Vial IV (14:13)
--- NOTE | 2022-02-26 14:14 | HP.PCM_ITS ---
HPI - General HPI Narrative EVETTE DAVILA, is a 71 M who presents for treatment of left kidney stone. [facility] Medical History (Updated 02/26/22 @ 14:[address] Edgardo Mccullough MD) Abnormal stress echo Atherosclerosis of coronary artery of [place] heart without angina pectoris Cardiology follow-up encounter Colon polyps CPAP (continuous positive airway pressure) dependence Diabetes Diverticulosis Dyspnea on exertion Essential hypertension High cholesterol History of echocardiogram History of edema History of WI (myocardial infarction) History of renal disease Hyperlipidemia Hypertension Injury of back Loss of hearing Neuropathy Non-smoker BEAU on CPAP Shortness of breath on exertion Thrombocytopenia Type 2 diabetes mellitus without complication Wears glasses Home Medications cyanocobalamin (vitamin B-12) 1,000 mcg PO DAILY@0800 07/04/16 [History Last Taken Unknown] furosemide 20 mg PO DAILY 07/04/16 [History Last Taken Unknown] metoprolol tartrate 50 mg PO BID 07/04/16 [History Last Taken 02/26/22 07:30] multivitamin 1 ea PO DAILY 07/04/16 [History Last Taken Unknown] psyllium husk 3 cap PO BID 07/04/16 [History Last Taken Unknown] atorvastatin 40 mg PO QHS 02/27/18 [History Last Taken Unknown] lisinopril 40 mg PO QHS 03/02/18 [History Last Taken 11/16/19] cholecalciferol (vitamin D3) 50 mcg (2,000 unit) tablet 2,000 unit PO DAILY 10/22/19 [History Last Taken Unknown] clopidogrel 75 mg tablet 75 mg PO DAILY #90 tab 12/14/19 [Rx Last Taken 01/20/22] aspirin 325 mg tablet,delayed release 325 mg PO DAILY 08/10/21 [History Last Taken 01/20/22] cetirizine 10 mg tablet 10 mg PO DAILY PRN 08/10/21 [History Last Taken Unknown] zinc 50 mg tablet 50 mg PO DAILY 08/10/21 [History Last Taken Unknown] amlodipine 10 mg tablet 10 mg PO DAILY #90 tab 09/28/21 [Rx Last Taken 02/26/22 07:30] ascorbic acid (vitamin C) 500 mg tablet 1 g PO DAILY tab 09/28/21 [History Last Taken Unknown] ciprofloxacin HCl 500 mg PO BID #6 tab 02/26/22 [Rx Last Taken Unknown] oxycodone-acetaminophen 1 tab PO Q6H PRN 7 Days #14 tab 02/26/22 [Rx Last Taken Unknown] Allergy/AdvReac Type Severity Reaction Status Date / Time clams Allergy Rash Verified 02/26/22 11:26 Family History Mother Colon cancer Surgical History (Updated 02/23/22 @ 15:28 by Rose Cristobal) History of cardiac catheterization History of cholecystectomy History of coronary artery stent placement (~07/20/04) History of left heart catheterization (11/16/19) History of lithotripsy Social History Smoking Status: Never smoker alcohol intake: never substance use type: does not use Vital Signs Vital Signs Vital Signs: 02/26/22 11:31 Temperature 98.5 F Temperature Source Temporal Pulse Rate 55 L Respiratory Rate 16 Respiratory Pattern Normal Blood Pressure 132/73 H Blood Pressure Mean 92 Blood Pressure Source Monitor Blood Pressure Position Semi-Fowlers Blood Pressure Location Left Arm Pulse Ox 97 Oxygen Delivery Method Room Air Weight Weight: 100 kg Body Mass Index (BMI) 36.6 Results Lab / Micro Data Micro: Microbiology 02/26/22 11:07 Interface Orders SARS-CoV-2 Antigen (Rapid) - Final
--- NOTE | 2022-02-26 14:14 | PCM.DC ---
Discharge Instructions Diet Discharge Diet: No restrictions Activity Discharge Activity: Return to Normal Activity and May Not Drive (while taking narcotic pain medications.) Dressing / Incision Call your doctor if you observe: Fever of 101 or Higher Follow Up Care Please Follow Up With: Edgardo Mccullough MD When: Call [phone] for an appointment Test Results: Test results from this visit will be discussed in further detail at your follow-up appointment, if applicable. Discharge Plan Admission Primary Reason for Your Visit: ESWL AND STENT Attending Provider: Edgardo Mccullough Primary Care Provider: Juan Carlos Dee Instructions Patient Instructions: Shock Wave Lithotripsy Discharge Orders/Prescriptions Prescriptions: New oxycodone-acetaminophen 5-325 mg tablet 1 tab PO Q6H PRN (Reason: pain) 7 Days Qty: 14 RF: 0 ciprofloxacin HCl 500 mg tablet 500 mg PO BID Qty: 6 RF: 0 Continued cholecalciferol (vitamin D3) 2,000 unit tablet 2,000 unit PO DAILY RF: 0 amlodipine 10 mg tablet 10 mg PO DAILY Qty: 90 RF: 3 aspirin 325 mg tablet,delayed release (DR/EC) 325 mg PO DAILY RF: 0 cetirizine 10 mg tablet 10 mg PO DAILY PRN (Reason: ALLERGIES) RF: 0 zinc 50 mg tablet 50 mg PO DAILY RF: 0 ascorbic acid (vitamin C) 500 mg tablet 1 g PO DAILY RF: 0 multivitamin 1 EACH tablet 1 ea PO DAILY RF: 0 cyanocobalamin (vitamin B-12) 500 MCG tablet 1,000 mcg PO DAILY@0800 RF: 0 metoprolol tartrate 50 MG tablet 50 mg PO BID RF: 0 furosemide 20 MG tablet 20 mg PO DAILY RF: 0 psyllium husk 0.52 GM capsule 3 cap PO BID RF: 0 atorvastatin 40 MG tablet 40 mg PO QHS RF: 0 lisinopril 40 MG tablet 40 mg PO QHS RF: 0 clopidogrel [Plavix] 75 mg tablet 75 mg PO DAILY Qty: 90 RF: 3 Referrals / Follow Up: Edgardo Mccullough MD [STAFF PHYSICIAN] - Juan Carlos Dee MD [Primary Care Provider] - Disposition Disposition (needs filled in before D/C Order can be placed): Home, Self Care
--- NOTE | 2022-02-26 14:15 | PCM.OPRPT ---
Report of Operation Date of Procedure: 02/26/22 Pre-Operative Diagnosis: Left kidney stone Post-Operative Diagnosis: Same Surgery/Procedure Performed:: Left ESWL and cystoscopy left stent placement Description of Surgical Findings:: Patient presents to the hospital for treatment of a kidney stone with shockwave lithotripsy. In the preoperative area and x-ray was done to confirm the location of the stone. The x-ray was reviewed and the stone location was reviewed. In the preoperative setting I spoke with the patient regarding the treatment of the stone how the treatment would be conducted and the expectations after surgery. The patient understands there is a risk of bleeding and infection. Also discussed the very rare risk of hematoma or damage to the kidney. We also discussed the risk that the shockwave machine will fail to break the stone adequately and that the patient may need other surgical procedures. We also discussed the possibility that the patient may need a stent after the procedure. After reviewing the procedure with the patient, the patient is signed the consent form all the patient's questions were addressed and was taken back to the operating room for treatment of a kidney stone. Patient was taken back to the operating room, patient was identified by the nursing staff, we identified the side of the treatment and the patient side of treatment had been marked by my initials. The patient underwent general anesthetic and was placed supine on the lithotripter table. We then used fluoroscopy to identify the stone on the Left side. The urethra and genitals were prepped and draped in usual sterile fashion. Using a 21 [place]ian rigid cystourethroscope the entire length of the urethra was normal then went into the bladder. Identified the trigone the left and right ureteral orifice. I then cannulated the left orifice and advanced a wire up into the kidney. I then backloaded a 5 Jordanian open ended catheter over the wire and injected contrast to delineate the anatomy. After the retrograde was performed I then used fluoroscopic images and guidance to advanced a wire up into the kidney and over the 0.038 glidewire I advanced a 6 Jordanian by 26 cm double pigtail stent. I then pulled the 0.038 Glidewire off and the stent coiled in the kidney bladder good position. The bladder was then drained. We then positioned the patient under the lithotripter and we used triangulation technique to identify the location of the stone and then we made sure that the stone was engaged in the F2 focal point of F2 Donier lithoprior machine. Once the patient was positioned appropriately and the stone was identified and placed in the F2 focal point of the lithotripter machine we then proceeded with shockwave lithotripsy. In the beginning the shockwave was delivered at a rate of 90 shocks per minute, we monitor the EKG for any ectopy. The power was slowly increased to 5 kV and subsequently at the 7 kV. We then proceeded with the treatment we move the therapy had around during the treatment to make sure the stone stayed in the F2 focal point during the entire treatment and after 3000 shockwaves were delivered to the stone under fluoroscopic guidance the treatment was completed. The patient was given instructions to call the office to make an a follow-up appointment with an xray to evaluate the success of the treatment, pateint understands that its possible the stones may need another procedure.At this point the patient's anesthetic was reversed patient was extubated and taken back to the PACU in stable condition. Surgeon: kelsi Type of Anesthesia: General Drains: stent left Admit VTE Documentation VTE Present on Admission: No VTE Mechan Device Prophylaxis: SCD's VTE Pharm Prophylaxis ordered?: No
[2022-02-26 14:19] VITALS: BP 132/73; BP 139/76; PULSE 64; RESP 16; TEMP 36.4; O2SAT 92
[2022-02-26 14:30] VITALS: BP 132/73; BP 133/72; PULSE 57; RESP 16; O2SAT 93
[2022-02-26 14:43] VITALS: BP 132/73; BP 137/83; PULSE 54; RESP 16; TEMP 35.8; O2SAT 94
[2022-02-26 15:11] VITALS: BP 132/73; BP 135/72; PULSE 58; RESP 16; TEMP 36.2; O2SAT 93
== END 2022-02-26 23:59 | disposition home or self-care (01) ==
LOC: SDC 10:47 → AC 10:48
PROVIDERS: PCP Internal Medicine; Referring Provider Urology; Visit Provider Urology
PROC: (CPT 50590; principal; 2022-02-26 12:55)
DX: N20.0 Calculus of kidney (principal); E11.40 Type 2 diabetes mellitus with diabetic neuropathy, unspecified; N40.1 Benign prostatic hyperplasia with lower urinary tract symptoms; R35.0 Frequency of micturition; I25.10 Atherosclerotic heart disease of native coronary artery without angina pectoris; I10 Essential (primary) hypertension; E78.5 Hyperlipidemia, unspecified; G47.33 Obstructive sleep apnea (adult) (pediatric); M19.90 Unspecified osteoarthritis, unspecified site; H91.90 Unspecified hearing loss, unspecified ear; Z79.02 Long term (current) use of antithrombotics/antiplatelets; Z79.82 Long term (current) use of aspirin; Z87.442 Personal history of urinary calculi; I25.2 Old myocardial infarction; Z95.5 Presence of coronary angioplasty implant and graft
CPT/HCPCS: 52332; 00873; 87426; J7120; C1769; C2617; J2405

== ENCOUNTER → 2022-04-15 | Outpatient (CLI) | payer MEDICARE, SELFPAY ==
[2022-04-15 12:51] LABS: PSA,Total - Annual Screen 6.54 ng/mL (0.00-4.00)
== END | disposition home or self-care (01) ==
LOC: LAB 11:35
PROVIDERS: PCP Internal Medicine; Referring Provider Urology; Visit Provider Urology
DX: Z12.5 Encounter for screening for malignant neoplasm of prostate (principal)
CPT/HCPCS: 36415; 84153; G0103

== ENCOUNTER → 2022-10-11 | Outpatient (CLI) | payer MEDICARE, SELFPAY ==
[2022-10-11 12:08] LABS: PSA,Total - Annual Screen 5.31 ng/mL (0.00-4.00)
== END | disposition home or self-care (01) ==
LOC: LAB 10:59
PROVIDERS: PCP Internal Medicine; Visit Provider Urology
DX: R97.20 Elevated prostate specific antigen [PSA] (principal)
CPT/HCPCS: 36415; 84153; G0103

== ENCOUNTER → 2023-01-10 | Outpatient (CLI) | payer MEDICARE, SELFPAY ==
--- NOTE | 2023-01-10 13:40 | MASS_PTH ---
PATIENT: EVETTE DAVILA [facility] U#:[id number] AGE/SX: 72/M ROOM: RE01/10/[address]: Dr. Renzo Padilla MD : 1950 BED: DIS: 01/10/2023 SPEC #: [id number] RECD: 01/11/23 10:08 STATUS: [facility] #: [id number] ANDREA: 01/10/23 13:[address]: Renzo Padilla DEPT: SURGICAL PATHOLOGY RECD BY: Lety Gilmore ENTERED: 01/11/23 10:09 SP TYPE: Mass OTHR DR: Dr. 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 AM:mary 01/12/2023 MICROSCOPIC DESCRIPTION Slides are reviewed. GROSS DESCRIPTION Received in fixative is one container labeled with the patient's name and designated right ear canal mass. The specimen consists of a piece of nair-brown soft tissue measuring 0.5 x 0.5 x 0.3 cm. The entire specimen is submitted in one cassette. / SJ:mary 01/11/2023 TC:2 CPT: 87729
== END | disposition home or self-care (01) ==
LOC: LABSPEC 15:05
PROVIDERS: PCP Internal Medicine; Referring Provider Otolaryngology; Visit Provider Otolaryngology
DX: D23.21 Other benign neoplasm of skin of right ear and external auricular canal (principal); L91.8 Other hypertrophic disorders of the skin
CPT/HCPCS: 88305

== ENCOUNTER → 2023-05-02 | Outpatient (CLI) | payer MEDICARE, SELFPAY ==
--- NOTE | 2023-05-02 06:47 | CT_ITS ---
ACR Level 3 findings have been noted. An addendum which confirms receipt of the report will follow. INDICATION: KIDNEY STONE EXAMINATION: CT Abdomen And Pelvis W/O Contrast Injection TECHNIQUE: Helically acquired images were obtained of the abdomen and pelvis without the use of IV contrast. A radiation dose optimization technique was used for this scan. Oral contrast: None. COMPARISON: 02/17/2022 FINDINGS: Evaluation of the solid organs and vascular structures is limited without intravenous contrast. Visualized lung bases: Unremarkable Liver: Diffusely hypodense consistent with fatty liver. Gallbladder: Surgically absent. Spleen: Unremarkable Pancreas: Unremarkable Adrenal Glands: Unremarkable Kidneys: Scattered too small to characterize subcentimeter hypodensities bilaterally. No hydronephrosis. There is slightly asymmetric hypertrophy of the left kidney. Vasculature: Mild scattered aortoiliac atherosclerotic calcifications. GI Tract: Unremarkable Lymphadenopathy: None Peritoneum: No ascites. Bladder: There is a 5 mm stone in the dependent portion of the bladder. Reproductive organs: The prostate is mildly enlarged. Bones/Soft tissues: Mild scattered degenerative changes of the visualized spine. Small fat-containing periumbilical hernia. CT/Abdomen/Pelvis without Cont IMPRESSION: No hydronephrosis or renal/ureteral stones. There is, however, a 5 mm stone in the bladder. Slightly asymmetric hypertrophy of the left kidney. Recommend follow-up CT abdomen w/ contrast to rule out neoplasm or hematoma. Mild prostatomegaly. Correlate with PSA levels. Fatty liver. Electronically Signed: Renzo Fernandez MD at 18:29 EDT ,
== END | disposition home or self-care (01) ==
LOC: CT 06:46
PROVIDERS: PCP Internal Medicine; Referring Provider Urology; Visit Provider Urology
DX: N20.0 Calculus of kidney (principal)
CPT/HCPCS: 74176

== ENCOUNTER → 2023-09-29 | Outpatient (CLI) | payer MEDICARE, SELFPAY ==
[2023-09-29 10:55] LABS: PSA,Total- Diagnostic 5.56 ng/mL (0.0-4.0)
== END | disposition home or self-care (01) ==
LOC: LAB 09:59
PROVIDERS: PCP Internal Medicine; Referring Provider Urology; Visit Provider Urology
DX: R97.20 Elevated prostate specific antigen [PSA] (principal)
CPT/HCPCS: 36415; 84153

== ENCOUNTER → 2024-01-04 | Outpatient (CLI) | payer MEDICARE, SELFPAY ==
--- NOTE | 2024-01-04 08:51 | ECHOCS_ITS ---
Reason For Study: CAD/ASHD Procedure This was a 2D Doppler, Color Flow transthoracic echocardiogram. The study was technically difficult. Contrast injection was performed. Exam performed in department. Left Ventricle Normal LV size. Left ventricular systolic function is lower limits of normal. The estimated ejection fraction is 50 %. Stage 1 diastolic dysfunction. Mid-Anterior : Hypokinetic. Anterior [place] : Hypokinetic. Septal [place] : Hypokinetic. Mid-anteroseptal : Hypokinetic. The rest of the wall segments are normal. Right Ventricle Normal right ventricle. Normal systolic function. Atria The left atrium is mildly enlarged. Normal right atrium. Mitral Valve The mitral valve is structurally normal. No prolapse or stenosis seen. Trivial mitral valve insufficiency. Tricuspid Valve Normal tricuspid valve. Trivial tricuspid valve insufficiency. Right ventricular systolic pressure estimated to be 23 mmHg. Aortic Valve Mild focal aortic valve thickening. Mild focal aortic valve calcification. Aortic sclerosis, no stenosis. Mild (1+) aortic valve insufficiency. Pulmonic Valve The pulmonic valve is not well visualized. Trivial pulmonic valve insufficiency. Great Vessels Mildly dilated aortic root. Moderately dilated sinus of valsalva. Pericardium/Pleural No pericardial effusion. Medication 20 gauge I.V. with prn adaptor inserted into right arm. Diluted definity 4ml given slow IV push to enhance endocardial definition. MMode/2D Measurements & Calculations LVIDd: 4.0 cm LVPWd: 1.00 cm Ao root diam: 4.2 cm LVIDs: 2.9 cm FS: 26.9 % LA dimension: 3.9 cm RVDd: 3.6 cm LAV(MOD-bp): 81.3 ml LVAd ap4: 39.2 cm2 SV(MOD-sp4): 71.5 ml LAV(MOD-bp) Indexed: 40.6 ml/m2 LVLd ap4: 8.7 cm LAV(MOD-sp2): 73.5 ml EDV(MOD-sp4): 142.1 ml LAV(MOD-sp4): 79.7 ml EDV(sp4-el): 149.2 ml LVAs ap4: 25.0 cm2 LVLs ap4: 7.2 cm ESV(MOD-sp4): 70.7 ml ESV(sp4-el): 73.9 ml EF(MOD-sp4): 50.3 % EF(sp4-el): 50.5 % SV(sp4-el): 75.3 ml LA A4 area: 25.8 cm2 TAPSE: 1.7 cm Time Measurements MV dec time: 0.31 sec Doppler Measurements & Calculations MV E max pablo: 60.8 cm/sec Lat Peak E' Pablo: 6.3 cm/sec Med Peak E' Pablo: 7.3 cm/sec MV A max pablo: 78.5 cm/sec E/E' lat: 9.6 E/E' med: 8.4 MV E/A: 0.77 MV V2 max: 86.7 cm/sec MV P1/2t max pablo: 78.6 cm/sec Ao V2 max: 152.9 cm/sec MV max P.0 mmHg MV P1/2t: 103.2 msec Ao max P.4 mmHg MV V2 mean: 45.6 cm/sec Ao V2 mean: 105.3 cm/sec MV mean P.00 mmHg MV dec slope: 223.0 cm/sec2 Ao mean P.1 mmHg MV V2 VTI: 40.2 cm MVA(P1/2t): 2.1 cm2 Ao V2 VTI: 38.1 cm AV (velocity ratio): 0.62 AI max pablo: 318.3 cm/sec LV V1 max: 94.0 cm/sec PA V2 max: 71.2 cm/sec AI max P.5 mmHg LV V1 max P.5 mmHg PA V2 mean: 50.2 cm/sec LV V1 mean P.8 mmHg AI dec slope: 112.1 cm/sec2 LV V1 mean: 62.5 cm/sec AI P1/2t: 831.5 msec LV V1 VTI: 23.7 cm TR max pablo: 226.0 cm/sec TR max P.4 mmHg ECHO/Echo Complete W/ Contrast Interpretation Summary The estimated ejection fraction is 50 %. Stage 1 diastolic dysfunction. The left atrium is mildly enlarged. Mild (1+) aortic valve insufficiency. Mildly dilated aortic root. Moderately dilated sinus of valsalva. Ordering Physician: Gilma Harden Referring Physician: Juan Carlos Dee M.D. Performed By: Ronnie Layne RCS
== END | disposition home or self-care (01) ==
PROVIDERS: PCP Internal Medicine; Referring Provider Internal Medicine Cardiovascular Disease; Visit Provider Internal Medicine Cardiovascular Disease
DX: I25.10 Atherosclerotic heart disease of native coronary artery without angina pectoris (principal)
CPT/HCPCS: 93306; Q9957; A4216; C8929

== ENCOUNTER → 2024-07-12 | Outpatient (CLI) | payer MEDICARE, SELFPAY ==
[2024-07-12 16:09] LABS: Anion Gap 8 (5-15); BUN 27 mg/dL (7-18); BUN/Creat Ratio 19.7 RATIO (10-20); Calcium,Total 8.8 mg/dL (8.5-10.1); Chloride 106 mmol/L (98-107); Creatinine, Serum 1.37 mg/dL (0.70-1.30); EST Glomerular Filtration Rate 54 mL/min (>60); Est Glom Filt Rate - Afr Amer 65 mL/min (>60); Glucose 204 mg/dL (74-106); Magnesium 2.1 mg/dL (1.6-2.6); Potassium 3.5 mmol/L (3.5-5.1); Sodium Level 141 mmol/L (136-145)
== END | disposition home or self-care (01) ==
LOC: LAB 14:02
PROVIDERS: PCP Internal Medicine; Referring Provider Internal Medicine Cardiovascular Disease; Visit Provider Internal Medicine Cardiovascular Disease
DX: I35.1 Nonrheumatic aortic (valve) insufficiency (principal); I51.89 Other ill-defined heart diseases; I10 Essential (primary) hypertension; E78.5 Hyperlipidemia, unspecified; G47.33 Obstructive sleep apnea (adult) (pediatric); Z99.89 Dependence on other enabling machines and devices; I25.10 Atherosclerotic heart disease of native coronary artery without angina pectoris; I49.1 Atrial premature depolarization
CPT/HCPCS: 36415; 80048; 83735; 84443

== ENCOUNTER → 2025-03-05 | Outpatient (CLI) | payer MEDICARE, SELFPAY ==
--- NOTE | 2025-03-05 07:06 | ECHOD_ITS ---
Reason For Study Reason For Study: CAD Procedure This was a 2D Doppler, Color Flow transthoracic echocardiogram. Exam performed in department. Left Ventricle Normal LV size. Left ventricular systolic function is lower limits of normal. The estimated ejection fraction is 50 %. Stage 1 diastolic dysfunction. Mid-Anterior : Hypokinetic. Anterior [place] : Hypokinetic. Septal [place] : Hypokinetic. Mid- anteroseptal : Hypokinetic. The rest of the wall segments are normal. Right Ventricle Normal RV size. Normal systolic function. Atria The left and right atria are normal. Mitral Valve The mitral valve is structurally normal. No prolapse or stenosis seen. Trivial mitral valve insufficiency. Tricuspid Valve Normal tricuspid valve. Trivial tricuspid valve insufficiency. Pulmonary artery systolic pressure is 23 mmHg. Aortic Valve Mild focal aortic valve calcification. Bicuspid aortic valve. Aortic sclerosis, no stenosis. There is no aortic stenosis. Mild (1+) aortic valve insufficiency. Pulmonic Valve Normal pulmonic valve. Trivial pulmonic valve insufficiency. Great Vessels Mildly dilated aortic root. Moderately dilated sinus of valsalva. Pericardium/Pleural No pericardial effusion. MMode/2D Measurements & Calculations LVIDd: 4.0 cm IVSd: 1.3 cm LVOT diam: 2.6 cm LVIDs: 2.5 cm LVPWd: 1.2 cm LVOT area: 5.3 cm2 RVDd: 3.0 cm FS: 38.6 % Ao root diam: 4.0 cm LAV(MOD-bp): 45.0 ml LVAd ap4: 31.8 cm2 LAV(MOD-bp) Indexed: 23.0 ml/m2 LVLd ap4: 8.3 cm LAV(MOD-sp2): 44.6 ml EDV(MOD-sp4): 103.5 ml LAV(MOD-sp4): 36.5 ml EDV(sp4-el): 103.3 ml LVAs ap4: 19.9 cm2 LVLs ap4: 7.2 cm ESV(MOD-sp4): 47.3 ml ESV(sp4-el): 46.7 ml EF(MOD-sp4): 54.3 % EF(sp4-el): 54.8 % LVAd ap2: 25.7 cm2 SV(MOD-sp4): 56.2 ml SV(MOD-sp2): 32.5 ml LVLd ap2: 8.1 cm SI(MOD-sp4): 28.7 ml/m2 SI(MOD-sp2): 16.6 ml/m2 EDV(MOD-sp2): 68.5 ml EDV(sp2-el): 69.2 ml LVAs ap2: 17.6 cm2 LVLs ap2: 7.3 cm ESV(MOD-sp2): 36.0 ml ESV(sp2-el): 36.2 ml EF(MOD-sp2): 47.4 % SV(sp4-el): 56.6 ml Ao sinus diam: 4.8 cm LA A4 area: 14.3 cm2 LA dimension(2D): 3.1 cm RA A4 area: 8.8 cm2 TAPSE: 1.5 cm Time Measurements MV dec time: 0.25 sec Doppler Measurements & Calculations MV E max pablo: 61.1 cm/sec Lat Peak E' Pablo: 9.9 cm/sec Med Peak E' Pablo: 6.2 cm/sec MV A max pablo: 93.7 cm/sec E/E' lat: 6.2 E/E' med: 9.9 MV E/A: 0.65 Ao V2 max: 182.1 cm/sec AI max pablo: 381.0 cm/sec MV dec slope: 240.6 cm/sec2 Ao max P.3 mmHg AI max P.1 mmHg Ao V2 mean: 124.8 cm/sec Ao mean P.9 mmHg AI dec slope: 217.3 cm/sec2 Ao V2 VTI: 36.2 cm AI P1/2t: 513.5 msec AV (velocity ratio): 0.65 SILVESTRE(I,D): 3.5 cm2 SILVESTRE(V,D): 3.3 cm2 LV V1 max: 112.5 cm/sec SV(LVOT): 125.9 ml PA V2 max: 107.6 cm/sec LV V1 max P.1 mmHg LV V1 mean P.8 mmHg LV V1 mean: 78.8 cm/sec LV V1 VTI: 23.5 cm TR max pablo: 220.9 cm/sec TR max P.5 mmHg ECHO/Echo Complete Interpretation Summary The estimated ejection fraction is 50 %. Functionally bicuspid aortic valve. Mild focal aortic valve calcification. Mild (1+) aortic valve insufficiency. Mildly dilated aortic root. Stage 1 diastolic dysfunction. Ordering Physician: Gilma Harden Referring Physician: Juan Carlos Dee M.D. Performed By: Nevin Vieira RDCS
--- NOTE | 2025-03-05 12:26 | STRESSREP ---
Stress Test Report Date: 03/05/2025 Procedure: Pharmacologic stress nuclear imaging study Indications: Coronary artery disease Consent: Per the patient Procedure: The patient underwent pharmacologic (Regadenoson 0.4mg ) evaluation with a peak heart rate of 94 beats per minute (64%predicted maximal heart rate) and a peak blood pressure of 124/68 mmHg. The baseline ECG demonstrated sinus rhythm. The peak pharmacologic ECG no ischemic changes. There were no cardiac dysrhythmias pretest, during pharmacologic infusion, or recovery. There was no complaint of chest discomfort during pharmacologic infusion or recovery. The patient was injected with 14.1 millicuries of technetium 99m Cardiolite and subsequently rest SPECT Cardiolite nuclear imaging was obtained in the horizontal long, vertical long, and short axis views. The patient underwent pharmacologic (Regadenoson) evaluation. The patient was injected with 45.0 millicuries of technetium 99m Cardiolite and subsequently stress SPECT Cardiolite nuclear imaging was obtained in the horizontal long, vertical long, and short axis views. A gated Cardiolite study at peak stress was obtained. The examination was stopped secondary to completion of protocol. Rest and stress SPECT Cardiolite nuclear imaging status post realignment, normalization, and attenuation correction demonstrate no fixed or reversible perfusion defects. There is end systolic thickening and brightening. The gated Cardiolite study demonstrates myocardial thickening and inward wall motion. The reported LVEF is 56%. Impression: 1. Pharmacologic (Regadenoson) evaluation 2. Peak pharmacologic ECG with no ischemic changes. 3. There were no cardiac dysrhythmias pretest, during pharmacologic infusion, or recovery. 5. Rest and stress SPECT Cardiolite nuclear imaging demonstrate relative uniform tracer uptake and myocardial perfusion appearing within normal limits. 6. The gated Cardiolite study reports an LVEF of 56%. This note was generated with [employer] software. It may contain incorrect words, spelling, and punctuation that were not noted in checking the note before signing.
== END | disposition home or self-care (01) ==
LOC: CVS 07:05
PROVIDERS: PCP Internal Medicine; Referring Provider Internal Medicine Cardiovascular Disease; Visit Provider Internal Medicine Cardiovascular Disease
DX: I10 Essential (primary) hypertension (principal); Z95.5 Presence of coronary angioplasty implant and graft; I49.1 Atrial premature depolarization; I25.10 Atherosclerotic heart disease of native coronary artery without angina pectoris
CPT/HCPCS: 78452; 93017; 93306; A9500; A4216; J2785

== ENCOUNTER → 2025-04-03 | Outpatient (CLI) | payer MEDICARE, SELFPAY ==
[2025-04-03 16:40] LABS: PSA,Total- Diagnostic 5.17 ng/mL (0.00-4.00)
== END | disposition home or self-care (01) ==
PROVIDERS: PCP Internal Medicine; Referring Provider Urology; Visit Provider Urology
DX: R97.20 Elevated prostate specific antigen [PSA] (principal)
CPT/HCPCS: 36415; 84153

== ENCOUNTER → 2025-07-03 | Outpatient (CLI) | payer MEDICARE, SELFPAY ==
[2025-07-03 10:19] LABS: AST(SGOT) 20 U/L (<=37); Alanine Aminotransfer ALT/SGPT 18 U/L (<=46); Albumin, Serum 4.1 g/dL (3.4-4.8); Alkaline Phosphatase 103 U/L (40-129); Anion Gap 13 (5-15); BUN 20 mg/dL (4-19); BUN/Creat Ratio 17.1 RATIO (10-20); Calcium,Total 9.5 mg/dL (7.6-11.0); Carbon Dioxide 21.0 mmol/L (21.0-32.0); Chloride 105 mmol/L (98-108); Cholesterol 136 mg/dL (<=200); Globulin 2.2 g/dL (2.2-4.2); Glucose 154 mg/dL (70-99); Low Density Lipoprotein Calc. 45 mg/dL; Potassium 3.8 mmol/L (3.3-5.1); Triglycerides 265 mg/dL; Very Low Density Lipoprotein 53 mg/dL (5-40); cholesterol:hdl ratio screen 3.58
== END | disposition home or self-care (01) ==
LOC: LAB 08:02
PROVIDERS: PCP Internal Medicine; Referring Provider Internal Medicine Cardiovascular Disease; Visit Provider Internal Medicine Cardiovascular Disease
DX: I25.10 Atherosclerotic heart disease of native coronary artery without angina pectoris (principal); I10 Essential (primary) hypertension
CPT/HCPCS: 36415; 80053; 80061